=== PATIENT | female | born 1950 | race American Indian/Alaskan Native ===

== ENCOUNTER 2017-06-01 12:37 | Emergency (ER) | payer OTHER ==
[2017-06-01 12:38] VITALS: BMI 44.9
[2017-06-01 12:48] VITALS: RESP 16
--- NOTE | 2017-06-01 13:10 | C.PDOC ---
History Of Present Illness 66 y/o F c PMHx HTN, HLD p/w high blood pressure. Patient states that while her blood pressure was well controlled, her medications were changed due to insurance coverage reasons. She states that yesterday, she was having high blood pressure readings and spoke with her PMD's it applications analyst physician who recommended an additional Losartan. The patient also took additional Cardizem when her blood pressure would not improve. Today, the patient began feeling lightheaded and frontal head fullness, which worried her and brought her to the ER. She states that currently, the symptoms are much improved. She denies vision change, numbness, weakness, speech difficulty, unsteady gait, chest pain , dyspnea, vomiting. Time Seen by Provider: 06/01/17 12:39 Chief Complaint (Nursing): Headache Past Medical History Vital Signs: Last Vital Signs Temp Pulse 70 06/01/17 12:44 Resp 16 06/01/17 12:44 BP 145/84 06/01/17 12:44 Pulse Ox 97 06/01/17 13:10 - Medical History PMH: Anxiety, Depression, HTN, Hypothyroidism Denies: Fractures, Chronic Kidney Disease - [facility] CYSTOSCOPY NEC (06/22/13) OTH LYSIS-PERITONEAL ADHES (06/22/13) OTH REMOVE BOTH OVARIES/TUBES (06/22/13) OTHER AND UNSPECIFIED SUBTOTAL ABDOMINAL HYSTERECTOMY (06/22/13) Family History: States: No Known Family Hx - Social History Hx Alcohol Use: Yes Hx Substance Use: No Review Of Systems Except As Marked, All Systems Reviewed And Found Negative. Constitutional: Negative for: Fever Cardiovascular: Negative for: Chest Pain Physical Exam - Physical Exam Appears: No Acute Distress Skin: Normal Color Head: Atraumatic, Normacephalic Eye(s): bilateral: PERRL, EOMI Oral Mucosa: Moist Neck: Normal ROM Cardiovascular: Rhythm Regular Respiratory: Normal Breath Sounds Gastrointestinal/Abdominal: Soft, No Tenderness Back: No CVA Tenderness Extremity: No Tenderness, No Swelling Pulses: Left Radial: Normal, Right Radial: Normal Neurological/Psych: Oriented x3, Normal Speech, Normal Cognition, Normal Cranial Nerves, No Cerebellar Signs (normal), Normal Motor, Normal Sensation, No Expressive Aphasia, No Receptive Aphasia, No Dysarthria Gait: Steady ED Course And Treatment O2 Sat by Pulse Oximetry: 97 Medical Decision Making Medical Decision Making: Blood pressure largely normal and asymptomatic at this time. Counseled patient on chronic HTN, f/u PMD for further management. Instructed to return to ER for aphasia, unsteady gait, numbness, weakness, chest pain, dyspnea. Disposition - Disposition Disposition: HOME/ ROUTINE Disposition Time: 13:10 Condition: STABLE Instructions: Chronic Hypertension (ED) Forms: [facility] ([place]) - Clinical Impression Clinical Impression: Hypertension
[2017-06-01 13:29] VITALS: BP 131/55; PULSE 64; O2SAT 100
--- NOTE | 2017-06-04 17:47 | CARD ---
APPROVED REPORT EKG Measurement Heart [id number] <Conclusion> Normal sinus rhythm Cannot rule out Anterior infarct, age undetermined Abnormal ECG
== END 2017-06-01 13:30 | disposition home or self-care (01) ==
LOC: C.ER 12:37
DX: I10 Essential (primary) hypertension (principal); E78.5 Hyperlipidemia, unspecified; F17.210 Nicotine dependence, cigarettes, uncomplicated